=== PATIENT | female | born 2000 | race Caucasian/White ===

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

== ENCOUNTER → 2018-05-26 10:14 | Outpatient (CLI) | payer MEDICAID, SELFPAY ==
[2018-05-26 10:53] LABS: Basophils # 0.1 K/mm3 (0-0.2); Basophils % 0.7 % (0.1-2.0); Eosinophils # 0.2 K/mm3 (0.0-0.4); Eosinophils % 1.8 % (0.1-12.0); Hematocrit 41.2 % (37.0-47.0); Hemoglobin 13.1 g/dL (12.2-16.2); Lymphocytes # 3.6 K/mm3 (0.7-4.5); Lymphocytes % 35.5 % (10-50); Mean Corpuscular HGB Conc 31.9 g/dL (31.8-35.4); Mean Corpuscular Hemoglobin 25.6 pg (27.0-31.2); Mean Corpuscular Volume 80.2 fl (81-99); Mean Platelet Volume 6.8 fl (7.4-10.4); Monocytes # 0.6 K/mm3 (0.1-1.0); Monocytes % 5.5 % (1.7-9.3); Neutrophils # 5.8 K/mm3 (1.8-7.8); Neutrophils % 56.6 % (37.0-80.0); Platelet Count 386 K/mm3 (142-424); Red Blood Count 5.14 M/mm3 (4.20-5.40); Red Cell Distribution Width 15.3 % (11.5-17.5); White Blood Count 10.2 K/mm3 (4.5-13.0)
[2018-05-26 13:24] LABS: Thyroid Stimulating Hormone 1.56 uIU/ml (0.516-4.13)
[2018-05-27 10:33] LABS: Progesterone 0.2 ng/mL (.)
== END ==
PROVIDERS: Visit Provider Obstetrics & Gynecology
DX: N97.1 Female infertility of tubal origin (principal); R10.2 Pelvic and perineal pain
CPT/HCPCS: 36415; 84144; 84443; 85025

== ENCOUNTER 2018-12-17 10:46 | Emergency (ER) | payer SELFPAY ==
[2018-12-17 11:02] VITALS: BP 142/104; PULSE 93; RESP 18; TEMP 36.8; O2SAT 98; BMI 36.9
[2018-12-17 11:10] LABS: Microscopic, Urine URINE MICROSCOPIC (MICROSCOPIC)
[2018-12-17 11:13] LABS: Appearance,Urine CLOUDY (Clear); Bilirubin,Urine Negative (Negative); Blood, Urine 3+ (Negative); Color,Urine YELLOW (Yellow); Glucose,Urine (UA) Negative (Negative); Ketones,Urine Negative (Negative); Leukocyte Esterase,Urine Negative (Negative); Nitrate,Urine Negative (Negative); Protein,Urine Negative (Negative); Specific Gravity, Urine >= 1.030 (1.005-1.030); Urobilinogen,Urine 0.2 EU/dl (0.2)
[2018-12-17 11:17] LABS: Urine Pregnancy, HCG Qual. Negative (Negative)
[2018-12-17 11:32] LABS: Basophils # 0.1 K/mm3 (0-0.2); Basophils % 0.6 % (0.1-2.0); Eosinophils # 0.2 K/mm3 (0.0-0.4); Eosinophils % 1.5 % (0.1-12.0); Hematocrit 42.5 % (37.0-47.0); Hemoglobin 13.2 g/dL (12.2-16.2); Lymphocytes % 40.7 % (10-50); Mean Corpuscular HGB Conc 31.1 g/dL (31.8-35.4); Mean Corpuscular Hemoglobin 25.9 pg (27.0-31.2); Mean Corpuscular Volume 83.2 fl (81-99); Mean Platelet Volume 7.3 fl (7.4-10.4); Monocytes # 0.5 K/mm3 (0.1-1.0); Monocytes % 4.7 % (1.7-9.3); Neutrophils # 5.1 K/mm3 (1.8-7.8); Neutrophils % 52.5 % (37.0-80.0); Platelet Count 373 K/mm3 (142-424); Red Cell Distribution Width 14.1 % (11.5-17.5); White Blood Count 9.7 K/mm3 (4.5-13.0)
[2018-12-17 11:38] LABS: Bacteria,Urine Trace /lpf; RBC,Urine TNTC #/hpf (0-3)
--- NOTE | 2018-12-17 11:45 | US_ITS ---
US transvaginal HISTORY: ITS.REASON: heavy menstrual bleeding ORDERING PHYSICIAN: Chance Stephens MD PATIENT AGE: 18 years Comparison: 11/12/2017. FINDINGS: Uterus is empty and measures 6.5 x 3.2 x 3.8 cm. There is a small 4.2 mm anechoic focus in the mid posterior myometrium at the body of the uterus. There is no uterine cavity gestational sac, yolk sac or pole. The endometrial thickness is 7.9 mm. Right ovary is 3.8 x 2.3 x 2.3 cm. Left ovary is 4.2 x 2.6 x 2.2 cm. There is blood flow to both ovaries. There is no cul-de-sac fluid. Within the cervix there is a septated anechoic focus with some distal acoustic enhancement. This measures 1.4 cm in length and appears to be mildly smaller compared to the prior exam. Impression: Slightly smaller septated cystic focus in the cervix perhaps a complicated nabothian cyst. There is been no definite interval change to suggest cervical neoplasm although considering history suggest clinical evaluation. No other acute process.
--- NOTE | 2018-12-17 11:46 | PC.NURSE ---
notified rad of u/s order, spoke with vivek
[2018-12-17 11:51] LABS: Alanine Aminotransferase 81 U/L (12-78); Albumin Level 3.4 gm/dL (3.4-5.0); Albumin/Globulin Ratio 0.7 (1.1-1.8); Alkaline Phosphatase 70 U/L (46-116); Aspartate Amino Transferase 42 U/L (15-37); Bilirubin,Total 0.4 mg/dL (0.2-1.0); Blood Urea Nitrogen 13 mg/dL (7-18); Calcium 9.1 mg/dL (8.5-10.1); Carbon Dioxide 23 mmol/L (21.0-32.0); Chloride 102 mmol/L (98-107); Creatinine Clearance Estimated 178 mL/min (50-200); Estimated Glomerular Filt Rate 80 ml/min (>60); GFR (African American) 97 ML/MIN (>60); Globulin 4.6 gm/dl (1.3-3.2); Glucose 101 mg/dL (74-106); Sodium 139 mmol/L (136-145)
--- NOTE | 2018-12-17 12:22 | PC.NURSE ---
pt to ultrasound
--- NOTE | 2018-12-17 12:22 | PC.NURSE ---
Pt to ultrasound
--- NOTE | 2018-12-17 12:50 | PC.NURSE ---
pt return from Ultrasound
[2018-12-17 13:03] VITALS: BP 126/73; PULSE 86; O2SAT 98
--- NOTE | 2018-12-17 14:46 | [facility].EDGENADL ---
ED Disposition Clinical Impression: Vaginal bleeding Disposition: Home, Self-Care Condition on Discharge: Good Instructions: DI for Vaginal Bleeding Referrals: Maximilian Ocampo [Primary Care Provider] - Time of Disposition: 15:00 - Critical Care Critical Care Time: No Attestation: On 12/17/18, the high probability of a clinically significant, sudden or life threatening deterioration of the following system(s) required my full and direct attention, intervention and personal management. The time I documented below is in addition to time spent performing reported procedures but includes the following listed in this critical care notation. Medical Decision Making - Medical Records Medical records reviewed: Yes: I reviewed the patient's medical records. - Nathan Inquiry Pt receiving controlled substance: No Nathan was queried for this patient: No Vital Signs: 12/17/18 11:02 12/17/18 13:03 Temperature 98.3 F Temperature Source Oral Pulse Rate [Right Radial] 93 H 86 Respiratory Rate 18 Blood Pressure [Right Arm] 142/104 H 126/73 Blood Pressure Mean [Right Arm] 116 90 Blood Pressure Source [Right Arm] Automatic Cuff Automatic Cuff Blood Pressure Position [Right Arm] Sitting Sitting 02 Sat by Pulse Oximetry 98 98 Oxygen Delivery Method Room Air Room Air - Lab Data Lab results reviewed: Yes: I reviewed the patient's lab results. Lab Results 12/17/18 10:57: Urine Color Yellow, Urine Appearance Cloudy, Urine pH 6.0, Ur Specific [place] >= 1.030, Urine Protein Negative, Urine Glucose (UA) Negative, Urine Ketones Negative, Urine Blood 3+, Urine Nitrate Negative, Urine Bilirubin Negative, Urine Urobilinogen 0.2, Ur Leukocyte Esterase Negative, Urine RBC Tntc, Urine Bacteria Trace 12/17/18 10:57: Urine HCG, Qual Negative 12/17/18 11:02: WBC 9.7, RBC 5.10, Hgb 13.2, Hct 42.5, MCV 83.2, MCH 25.9 L, MCHC 31.1 L, RDW 14.1, Plt Count 373, MPV 7.3 L, Neut % (Auto) 52.5, Lymph % (Auto) 40.7, [place] % (Auto) 4.7, Eos % (Auto) 1.5, Baso % (Auto) 0.6, Neut # (Auto) 5.1, Lymph # (Auto) 4.0, [place] # (Auto) 0.5, Eos # (Auto) 0.2, Baso # (Auto) 0.1 12/17/18 11:02: Sodium 139, Potassium 4.0, Chloride 102, Carbon Dioxide 23, Anion Gap 18.0 H, BUN 13, Creatinine 0.90, Estimated Creat Clear 178, Estimated GFR 80, Est GFR ( Amer) 97, Glucose 101, Calcium 9.1, Total Bilirubin 0.4, AST 42 H, ALT 81 H, Alkaline Phosphatase 70, Total Protein 8.0, Albumin 3.4, Globulin 4.6 H, Albumin/Globulin Ratio 0.7 L Result diagrams: 12/17/18 11:02 12/17/18 11:02 General Adult HPI - General Chief complaint: Vaginal Bleeding Stated complaint: Cramping Bleeding and clotting Time Seen by Provider: 12/17/18 14:57 Mode of Arrival: Ambulatory Limitations: No Limitations Description of Symptoms (Recalled from ER Triage Doc. by RN): Pt reports lower abd cramping x1 week. Pt reports has been having vaginal bleeding x3 days and began passing large blood clots vaginally today. Pt reports unknown status states LMP was the first of November. Pt reports she also had a menstrual period the end of october as well. Pt reports she had her L fallopian tube removed last year per Dr. Woo r/t her tube was blocked per pt report - History of Present Illness HPI narrative: u/s here shows empty uterus. She was concerned about , the passed large clot without tissue. - Related Data Allergies Allergy/AdvReac Type Severity Reaction Status Date / Time codeine [CODEINE] Allergy Intermediate NA-DIARRHEA Verified 05/12/18 15:07 [facility] History - Hepatitis A Screen Drug use history?: No High risk sexual behaviors?: No History of sexually transmitted infection?: No Currently employed?: No Childcare worker?: No Do you have indoor plumbing?: Yes Do you have electricity?: Yes Attestation statement:: This patient has been screened for Hepatitis A risk factors. I have reviewed the patient's past medical history: Yes Medical History: Reports:: Hypert
--- NOTE | 2018-12-17 14:56 | ED_ITS ---
ED Disposition Clinical Impression: Vaginal bleeding Disposition: Home, Self-Care Condition on Discharge: Good Instructions: DI for Vaginal Bleeding Referrals: Maximilian Ocampo [Primary Care Provider] - Time of Disposition: 15:00 - Critical Care Critical Care Time: No Attestation: On 12/17/18, the high probability of a clinically significant, sudden or life threatening deterioration of the following system(s) required my full and direct attention, intervention and personal management. The time I documented below is in addition to time spent performing reported procedures but includes the following listed in this critical care notation. Medical Decision Making - Medical Records Medical records reviewed: Yes: I reviewed the patient's medical records. - Nathan Inquiry Pt receiving controlled substance: No Nathan was queried for this patient: No Vital Signs: 12/17/18 11:02 12/17/18 13:03 Temperature 98.3 F Temperature Source Oral Pulse Rate [Right Radial] 93 H 86 Respiratory Rate 18 Blood Pressure [Right Arm] 142/104 H 126/73 Blood Pressure Mean [Right Arm] 116 90 Blood Pressure Source [Right Arm] Automatic Cuff Automatic Cuff Blood Pressure Position [Right Arm] Sitting Sitting 02 Sat by Pulse Oximetry 98 98 Oxygen Delivery Method Room Air Room Air - Lab Data Lab results reviewed: Yes: I reviewed the patient's lab results. Lab Results 12/17/18 10:57: Urine Color Yellow, Urine Appearance Cloudy, Urine pH 6.0, Ur Specific [place] >= 1.030, Urine Protein Negative, Urine Glucose (UA) Negative, Urine Ketones Negative, Urine Blood 3+, Urine Nitrate Negative, Urine Bilirubin Negative, Urine Urobilinogen 0.2, Ur Leukocyte Esterase Negative, Urine RBC Tntc, Urine Bacteria Trace 12/17/18 10:57: Urine HCG, Qual Negative 12/17/18 11:02: WBC 9.7, RBC 5.10, Hgb 13.2, Hct 42.5, MCV 83.2, MCH 25.9 L, MCHC 31.1 L, RDW 14.1, Plt Count 373, MPV 7.3 L, Neut % (Auto) 52.5, Lymph % (Auto) 40.7, [place] % (Auto) 4.7, Eos % (Auto) 1.5, Baso % (Auto) 0.6, Neut # (Auto) 5.1, Lymph # (Auto) 4.0, [place] # (Auto) 0.5, Eos # (Auto) 0.2, Baso # (Auto) 0.1 12/17/18 11:02: Sodium 139, Potassium 4.0, Chloride 102, Carbon Dioxide 23, Anion Gap 18.0 H, BUN 13, Creatinine 0.90, Estimated Creat Clear 178, Estimated GFR 80, Est GFR ( Amer) 97, Glucose 101, Calcium 9.1, Total Bilirubin 0.4, AST 42 H, ALT 81 H, Alkaline Phosphatase 70, Total Protein 8.0, Albumin 3.4, Globulin 4.6 H, Albumin/Globulin Ratio 0.7 L Result diagrams: 12/17/18 11:02 12/17/18 11:02 General Adult HPI - General Chief complaint: Vaginal Bleeding Stated complaint: Cramping Bleeding and clotting Time Seen by Provider: 12/17/18 14:57 Mode of Arrival: Ambulatory Limitations: No Limitations Description of Symptoms (Recalled from ER Triage Doc. by RN): Pt reports lower abd cramping x1 week. Pt reports has been having vaginal bleeding x3 days and began passing large blood clots vaginally today. Pt reports unknown status states LMP was the first of November. Pt reports she also had a menstrual period the end of october as well. Pt reports she had her L fallopian tube removed last year per Dr. Woo r/t her tube was blocked per pt report - History of Present Illness HPI narrative: u/s here shows empty uterus. She was concerned about , the passed large clot without
[2018-12-17 15:11] VITALS: BP 149/84; PULSE 77; RESP 18; TEMP 36.8; O2SAT 99
== END 2018-12-17 15:05 | disposition home or self-care (01) ==
PROVIDERS: Emergency Provider Emergency Medicine; PCP Pediatrics
DX: N93.9 Abnormal uterine and vaginal bleeding, unspecified (principal); Z88.5 Allergy status to narcotic agent; I10 Essential (primary) hypertension
CPT/HCPCS: 76830; 80053; 81001; 81025; 85025; 99283